=== PATIENT | male | born 1970 | race Caucasian/White ===

== ENCOUNTER → 2019-02-25 11:04 | Outpatient (CLI) | payer OTHER, SELFPAY ==
[2019-03-01 12:54] LABS: HSV 1 IgM Screen Negative (Negative); HSV 2 IgM Screen Negative (Negative)
== END ==
PROVIDERS: PCP Family Medicine; Visit Provider Family Medicine
DX: Z20.2 Contact with and (suspected) exposure to infections with a predominantly sexual mode of transmission (principal)
CPT/HCPCS: 36415; 86695; 86696